=== PATIENT | female | born 1980 | race African-American/Black ===

== ENCOUNTER 2019-01-09 18:59 | Emergency (ER) | payer OTHER ==
[~2019-01-09] VITALS: Ht 157.5 cm; Wt 133.6 kg
[2019-01-09 20:46] LABS: HEMOGLOBIN 7.9 gm/dL (12.0-15.0); MCH 20.5 pg (26.0-34.0); MCHC 30.5 g/dL (28.0-37.0); MCV 67.3 fL (80.0-100.0); PLATELET COUNT 494 thou/uL (150-400); RBC 3.87 mil/uL (4.20-5.00); RDW 17.9 % (10.5-14.5); WBC 11.5 thou/uL (4.0-11.0)
[2019-01-09 21:05] LABS: APTT 29.2 Seconds (24.5-32.8); PROTIME 10.2 Seconds (9.3-11.4)
[2019-01-09] MEDS ORDERED: NAPROSYN500 MG PO (21:07)
[2019-01-09] MEDS ORDERED: PROVERA10 MG PO (21:07)
[2019-01-09 21:25] LABS: ABSOLUTE NEUTROPHILS 6.6 thou/uL (1.4-8.2); ANISOCYTOSIS 1+; HYPOCHROMASIA 2+; MICROCYTES 2+
[2019-01-09 21:48] VITALS: BP 134/73
== END 2019-01-09 21:35 | disposition home or self-care (01) ==
LOC: ER 18:59
PROVIDERS: Emergency Medicine
DX: D25.9 Leiomyoma of uterus, unspecified (principal); N93.8 Other specified abnormal uterine and vaginal bleeding; D64.9 Anemia, unspecified